=== PATIENT | female | born 1965 | race Caucasian/White ===

== ENCOUNTER 2019-06-07 13:34 | Emergency (ER) | payer MEDICAID ==
[~2019-06-07] VITALS: Ht 162.6 cm; Wt 77.1 kg
[~2019-06-07 13:34] MED LIST: ALBU108A5 IN; ASPI-404 PO; DOXY-286 PO; FAM20T PO; IPRIH INH; LEVO750T64 PO; LISI10TA6 PO
[2019-06-07 13:44] VITALS: BP 105/77
[2019-06-07] MEDS ORDERED: IPRATROPIUM BROM 0.5 MG/2.5ML INH SOL NEB ONE (14:15)
[2019-06-07] MEDS ORDERED: ALBUTEROL SULF 2.5 MG/0.5ML(0.5%) NEB SOLN NEB ONE (14:15)
[2019-06-07] MEDS ORDERED: cefTRIAXone SOD 1,000 MG VL IM ONE (14:15)
== END 2019-06-07 15:29 | disposition home or self-care (01) ==
LOC: ER 13:34
DX: J18.9 Pneumonia, unspecified organism (principal); I10 Essential (primary) hypertension
CPT/HCPCS: 71046; 94640; 96372; 99283; J0696; J7644

== ENCOUNTER 2020-02-21 11:09 | Emergency (ER) | payer OTHER, MEDICAID ==
[~2020-02-21] VITALS: Ht 162.6 cm; Wt 76.7 kg
[~2020-02-21 11:09] MED LIST changes: -ASPI-404 PO; +ASPI-543 PO; -FAM20T PO; +FAMO20TA10 PO; +LISI-648 PO; -LISI10TA6 PO
[2020-02-21 11:26] VITALS: BP 131/56
== END 2020-02-21 12:58 | disposition home or self-care (01) ==
LOC: ER 11:09
DX: S00.83XA Contusion of other part of head, initial encounter (principal); I10 Essential (primary) hypertension; I48.91 Unspecified atrial fibrillation; X58.XXXA Exposure to other specified factors, initial encounter; Y93.89 Activity, other specified; Y92.89 Other specified places as the place of occurrence of the external cause; Y99.8 Other external cause status
CPT/HCPCS: 70450

== ENCOUNTER 2020-10-29 13:16 | Inpatient (IN) | payer MEDICAID, OTHER ==
[~2020-10-29] VITALS: Ht 160 cm; Wt 84.3 kg
[~2020-10-29 13:16] MED LIST changes: -LISI-648 PO; +LISI-716 PO
[2020-10-29] MEDS ORDERED: ASPirin 81 mg TAB PO ONE (13:45)
[2020-10-29 14:07] LABS: Basophils # (auto) 0.1 10 ^3/uL (0-0.2); Eosinophils # (auto) 0.1 10 ^3/uL (0-0.8); Eosinophils % (auto) 1.8 % (0.0-7.0); Hematocrit 40.9 % (36.0-46.0); Hemoglobin 14.5 g/dL (12.2-16.2); Lymphocytes # (auto) 1.6 10 ^3/uL (0.4-5.4); Lymphocytes % (auto) 23.4 % (10.0-50.0); Mean Corpuscular Hemoglobin 31.9 pg (28.0-32.0); Mean Corpuscular Hgb Conc. 35.5 g/dL (32.0-36.0); Mean Corpuscular Volume 89.8 fL (80.0-100.0); Monocytes # (auto) 0.9 10 ^3/uL (0-1.3); Monocytes % (auto) 13.2 % (0.0-12.0); Neutrophils # (auto) 4.2 10 ^3/uL (1.6-8.6); Neutrophils % (auto) 60.6 % (37.0-80.0); Red Blood Cells 4.56 10^6/uL (4.0-5.20); Red Cell Distribution Width 13.2 % (11.8-14.3); White Blood Cell 6.9 10^3/uL (4.4-10.8)
[2020-10-29 14:18] LABS: Albumin 3.9 g/dL (3.4-5.0); Anion Gap 7 (5-15); Blood Urea Nitrogen 20 mg/dL (7-18); Calcium 9.7 mg/dL (8.5-10.1); Carbon Dioxide 22 mmol/L (21-32); Chloride 106 mmol/L (98-107); Potassium 4.2 mmol/L (3.5-5.1); Sodium 135 mmol/L (136-145)
[2020-10-29 14:22] LABS: INR 1.03 (0.9-1.15); Partial Thromboplastin Time 32.5 sec (23.6-33.0)
[2020-10-29 14:26] LABS: Alanine Aminotransferase 35 U/L (13-56); Alkaline Phosphatase 106 U/L (45-117); Aspartate Aminotransferase 28 U/L (15-37); BUN/Creatinine Ratio 19.6; Bilirubin, Total 0.6 mg/dL (0.2-1.0); GFR African American 72 mL/min; GFR Non-African American 59 mL/min; Glucose 100 mg/dL (74-106); Total Protein 8.4 g/dL (6.4-8.2)
[2020-10-29] MEDS ORDERED: ENOXAPARIN SOD 40 MG/0.4 ML SYRINGE SC ONE (17:30)
[2020-10-29] MEDS ORDERED: MORPHINE SULF INJ 2 MG/ML SYRINGE 1ML IV PRN ×3 (17:30→19:00)
[2020-10-29] MEDS ORDERED: NITROGLYCERIN 0.4 MG SL TAB SL PRN ×2 (17:30→19:00)
[2020-10-29] MEDS ORDERED: PANT40T PO (18:27)
[2020-10-29] MEDS ORDERED: HYDR-4924 PO (18:27)
[2020-10-29] MEDS ORDERED: FLE50T PO (18:27)
[2020-10-29] MEDS ORDERED: DABI150C5 PO (18:27)
[2020-10-29] MEDS ORDERED: BECL40AE11 IN (18:27)
[2020-10-29] MEDS ORDERED: BENA20TA PO (18:27)
[2020-10-29] MEDS ORDERED: BUPR150T18 PO (18:27)
[2020-10-29] MEDS ORDERED: POM (18:28)
[2020-10-29] MEDS ORDERED: SODIUM CHLORIDE 0.9% 500 ML IV ONE (18:45)
[2020-10-29] MEDS ORDERED: ATORVASTATIN 20 MG TAB PO ONE (18:45)
[2020-10-29] MEDS ORDERED: BENAZEPRIL HCL 10 MG TAB PO ONE (18:45)
[2020-10-29] MEDS ORDERED: ONDANSETRON HCL 4 MG/2 ML VIAL IV PRN (19:00)
[2020-10-29] MEDS ORDERED: hydrALAZINE HCL 20 MG/ML VL IV PRN (19:00)
[2020-10-29] MEDS ORDERED: ALUM & MAG HYDROX-SIMETH LIQ(MAALOX) 30 ML PO PRN (19:00)
[2020-10-29 20:28] VITALS: BP 159/96
[2020-10-29 20:30] LABS: Basophils # (auto) 0.1 10 ^3/uL (0-0.2); Basophils % (auto) 1.2 % (0.0-2.0); Eosinophils # (auto) 0.1 10 ^3/uL (0-0.8); Eosinophils % (auto) 2.3 % (0.0-7.0); Lymphocytes # (auto) 2.1 10 ^3/uL (0.4-5.4); Lymphocytes % (auto) 31.7 % (10.0-50.0); Mean Corpuscular Hemoglobin 30.2 pg (28.0-32.0); Mean Corpuscular Hgb Conc. 33.3 g/dL (32.0-36.0); Mean Corpuscular Volume 90.6 fL (80.0-100.0); Monocytes # (auto) 0.7 10 ^3/uL (0-1.3); Neutrophils # (auto) 3.6 10 ^3/uL (1.6-8.6); Neutrophils % (auto) 54.8 % (37.0-80.0); Nucleated Red Blood Cells % 0.1 %; Red Blood Cells 4.64 10^6/uL (4.0-5.20); Red Cell Distribution Width 13.2 % (11.8-14.3); White Blood Cell 6.5 10^3/uL (4.4-10.8)
[2020-10-29 20:42] LABS: Cholesterol 208 mg/dL (< 200)
[2020-10-29 20:46] LABS: HDL Cholesterol 56 mg/dL (40-59); LDL Cholesterol 122 mg/dL (< 100); Triglycerides 158 mg/dL (< 150)
[2020-10-29] MEDS ORDERED: LORazepam 2MG/ML-1ML VIAL IV PRN (21:00)
[2020-10-29] MEDS: SODIUM CHLORIDE 0.9% 1,000 ML IV SCH (21:07)
[2020-10-29] MEDS: FLECAINIDE ACETATE 50 MG TAB PO SCH (22:00)
[2020-10-29] MEDS ORDERED: IPRATROPIUM BROM 0.5 MG/2.5ML INH SOL NEB SCH (22:00)
[2020-10-29] MEDS: IPRATROPIUM BROM 0.5 MG/2.5ML INH SOL NEB PRN (22:06)
[2020-10-29] MEDS: BUDESONIDE (INHALATION) 0.5 MG/2 ML NEB NEB SCH (22:06)
[2020-10-29] MEDS: LORazepam 0.5 MG TAB PO PRN (22:59)
[2020-10-29] MEDS: ACETAMINOPHEN 325 MG TAB PO PRN (22:59)
[2020-10-29] MEDS: APIXABAN 5 MG TAB PO SCH (23:00)
[2020-10-29] MEDS: FAMOTIDINE (10MG/ML) 2ML VL IV SCH (23:00)
[2020-10-29 23:03] VITALS: BP 150/78
[2020-10-30] VITALS (7 sets, daily range): BP systolic 133–157; BP diastolic 74–91
[2020-10-30] MEDS: ACETAMINOPHEN 325 MG TAB PO PRN (04:59)
[2020-10-30] MEDS: BUPROPION XL 150 MG TAB PO SCH (06:20)
[2020-10-30] MEDS: IPRATROPIUM BROM 0.5 MG/2.5ML INH SOL NEB PRN (08:27)
[2020-10-30] MEDS: BUDESONIDE (INHALATION) 0.5 MG/2 ML NEB NEB SCH ×2 (08:27→19:43)
[2020-10-30] MEDS: FLECAINIDE ACETATE 50 MG TAB PO SCH ×3 (10:00→22:00)
[2020-10-30] MEDS ORDERED: ENOXAPARIN SOD 40 MG/0.4 ML SYRINGE SC SCH (10:00)
[2020-10-30] MEDS: FAMOTIDINE (10MG/ML) 2ML VL IV SCH ×2 (10:39→22:28)
[2020-10-30] MEDS: APIXABAN 5 MG TAB PO SCH ×2 (10:40→22:28)
[2020-10-30] MEDS: ASPirin 81 mg TAB PO SCH (10:40)
[2020-10-30] MEDS: BENAZEPRIL HCL 10 MG TAB PO SCH (10:42)
[2020-10-30] MEDS: HYDROcodone-ACET 5/325MG TAB PO PRN ×2 (17:36→22:49)
[2020-10-30] MEDS ORDERED: cloNIDine HCL 0.1 MG TAB PO PRN (17:45)
[2020-10-30] MEDS: SODIUM CHLORIDE 0.9% 1,000 ML IV SCH (20:00)
[2020-10-30 20:34] LABS: Amphetamine Screen, Urine NEGATIVE (NEGATIVE); Barbiturate Scree,Urine NEGATIVE (NEGATIVE); Benzodiazephine Screen, Urine NEGATIVE (NEGATIVE); Cannabinoid Screen, Urine NEGATIVE (NEGATIVE); Cocaine Screen, Urine NEGATIVE (NEGATIVE); Opiate Scree,Urine NEGATIVE (NEGATIVE); Phencyclidine Screen, Urine NEGATIVE (NEGATIVE)
[2020-10-30 20:46] LABS: Urine Bacteria NONE SEEN /hpf (None Seen); Urine Blood Negative /uL (Negative); Urine Specific Gravity 1.008 (1.001-1.035); Urine WBC 2 /hpf (0 - 5)
[2020-10-30] MEDS: LORazepam 0.5 MG TAB PO PRN (21:07)
[2020-10-30] MEDS ORDERED: LORazepam 2MG/ML-1ML VIAL IV PRN (21:30)
[2020-10-30] MEDS: ATORVASTATIN 20 MG TAB PO SCH (22:28)
[2020-10-31] VITALS (8 sets, daily range): BP systolic 116–155; BP diastolic 61–90
[2020-10-31] MEDS: SODIUM CHLORIDE 0.9% 1,000 ML IV SCH ×2 (04:20→15:18)
[2020-10-31] MEDS: BUPROPION XL 150 MG TAB PO SCH (07:00)
[2020-10-31] MEDS: BUDESONIDE (INHALATION) 0.5 MG/2 ML NEB NEB SCH ×2 (07:06→20:42)
[2020-10-31] MEDS: IPRATROPIUM BROM 0.5 MG/2.5ML INH SOL NEB PRN ×2 (07:06→20:42)
[2020-10-31] MEDS: FAMOTIDINE (10MG/ML) 2ML VL IV SCH ×2 (09:49→21:24)
[2020-10-31] MEDS: FLECAINIDE ACETATE 50 MG TAB PO SCH ×2 (09:52→21:25)
[2020-10-31] MEDS: BENAZEPRIL HCL 10 MG TAB PO SCH (09:52)
[2020-10-31] MEDS: ASPirin 81 mg TAB PO SCH (09:53)
[2020-10-31] MEDS: APIXABAN 5 MG TAB PO SCH ×2 (09:53→21:25)
[2020-10-31] MEDS: ATORVASTATIN 20 MG TAB PO SCH (21:25)
[2020-10-31] MEDS: HYDROcodone-ACET 5/325MG TAB PO PRN (21:25)
[2020-10-31] MEDS: LORazepam 0.5 MG TAB PO PRN (21:26)
[2020-11-01] MEDS: ACETAMINOPHEN 325 MG TAB PO PRN ×2 (04:42→19:59)
[2020-11-01 05:00] VITALS: BP 141/79
[2020-11-01] MEDS: BUPROPION XL 150 MG TAB PO SCH (06:28)
[2020-11-01] MEDS: SODIUM CHLORIDE 0.9% 1,000 ML IV SCH ×2 (06:33→22:20)
[2020-11-01] MEDS: BUDESONIDE (INHALATION) 0.5 MG/2 ML NEB NEB SCH ×2 (07:11→22:20)
[2020-11-01] MEDS: IPRATROPIUM BROM 0.5 MG/2.5ML INH SOL NEB PRN ×2 (07:11→22:20)
[2020-11-01 09:00] VITALS: BP 149/76
[2020-11-01] MEDS: FAMOTIDINE (10MG/ML) 2ML VL IV SCH ×2 (10:40→22:05)
[2020-11-01] MEDS: BENAZEPRIL HCL 10 MG TAB PO SCH (10:41)
[2020-11-01] MEDS: ASPirin 81 mg TAB PO SCH (10:41)
[2020-11-01] MEDS: APIXABAN 5 MG TAB PO SCH ×2 (10:42→22:06)
[2020-11-01] MEDS: FLECAINIDE ACETATE 50 MG TAB PO SCH ×2 (10:42→22:06)
[2020-11-01] MEDS: LORazepam 0.5 MG TAB PO PRN ×2 (11:19→22:06)
[2020-11-01 13:00] VITALS: BP 109/85
[2020-11-01 17:00] VITALS: BP 129/80
[2020-11-01 20:00] VITALS: BP 105/60
[2020-11-01 22:00] VITALS: BP 105/60
[2020-11-01] MEDS: ATORVASTATIN 20 MG TAB PO SCH (22:06)
[2020-11-02 05:00] VITALS: BP 109/69
[2020-11-02] MEDS: BUPROPION XL 150 MG TAB PO SCH (06:50)
[2020-11-02] MEDS: BUDESONIDE (INHALATION) 0.5 MG/2 ML NEB NEB SCH (07:22)
[2020-11-02] MEDS: IPRATROPIUM BROM 0.5 MG/2.5ML INH SOL NEB PRN (07:22)
[2020-11-02 09:00] VITALS: BP 104/79
[2020-11-02] MEDS: ASPirin 81 mg TAB PO SCH (10:00)
[2020-11-02] MEDS: FAMOTIDINE (10MG/ML) 2ML VL IV SCH (11:06)
[2020-11-02] MEDS: APIXABAN 5 MG TAB PO SCH (11:07)
[2020-11-02] MEDS: BENAZEPRIL HCL 10 MG TAB PO SCH (11:08)
[2020-11-02] MEDS: FLECAINIDE ACETATE 50 MG TAB PO SCH (11:09)
[2020-11-02 13:00] VITALS: BP 125/88
[2020-11-02 16:19] VITALS: BP 137/86
[2020-11-02 17:00] VITALS: BP 137/86
== END 2020-11-02 16:51 | disposition home or self-care (01) | DRG 48 ==
LOC: ER 13:16 → TELE 17:32 → TELE-WESTW 22:28
PROVIDERS: ADMIT Hospitalist; ATTEND Family Medicine
PROC: 5A09357 Assistance with Respiratory Ventilation, Less than 24 Consecutive Hours, Continuous Positive Airway Pressure (ICD-10-PCS; principal; 2020-10-31)
DX: G54.0 Brachial plexus disorders (principal); I11.9 Hypertensive heart disease without heart failure; I48.20 Chronic atrial fibrillation, unspecified; J44.1 Chronic obstructive pulmonary disease with (acute) exacerbation; E66.01 Morbid (severe) obesity due to excess calories; I16.9 Hypertensive crisis, unspecified; F32.9 Major depressive disorder, single episode, unspecified; F41.9 Anxiety disorder, unspecified; K29.70 Gastritis, unspecified, without bleeding; K21.9 Gastro-esophageal reflux disease without esophagitis; J32.9 Chronic sinusitis, unspecified; G47.30 Sleep apnea, unspecified; E78.5 Hyperlipidemia, unspecified; M77.8 Other enthesopathies, not elsewhere classified; Z20.822 Contact with and (suspected) exposure to COVID-19; E78.00 Pure hypercholesterolemia, unspecified; F17.200 Nicotine dependence, unspecified, uncomplicated; Z79.82 Long term (current) use of aspirin; Z79.899 Other long term (current) drug therapy; Z80.0 Family history of malignant neoplasm of digestive organs; Z80.1 Family history of malignant neoplasm of trachea, bronchus and lung; Z80.3 Family history of malignant neoplasm of breast; Z82.3 Family history of stroke; Z82.49 Family history of ischemic heart disease and other diseases of the circulatory system; Z88.8 Allergy status to other drugs, medicaments and biological substances; Z71.6 Tobacco abuse counseling; Z68.31 Body mass index [BMI] 31.0-31.9, adult
CPT/HCPCS: 36415; 70450; 70551; 71045; 72125; 73221; 80053; 80061; 80307; 81001; 83036; 84484; 85025; 85610; 85730; 87040; 87081; 87086; 87426; 93005; 93306; 93886; 94640; 94660; 95819; 96360; 96372; G0378; J3490